=== PATIENT | male | born 1960 ===

== ENCOUNTER 2019-04-07 06:12 | Day surgery (SDC) | payer OTHER ==
[~2019-04-07] VITALS: Ht 172.7 cm; Wt 97.5 kg
[2019-04-07] VITALS (12 sets, daily range): BP systolic 105–142; BP diastolic 68–79
[~2019-04-07 06:12] MED LIST: ceFAZolin 1gm IVPB IVPB ONE; celeBREX 200mg Cap **SURGERY PATIENTS ONLY ORAL ONE; oxyCONTIN 20mg tab ORAL ONE
[2019-04-07] MEDS ORDERED: ATORVASTATIN CA10 MG ORAL (07:06)
[2019-04-07] MEDS ORDERED: ATENOLOL100 MG ORAL (07:06)
[2019-04-07] MEDS ORDERED: PAMELOR10 MG ORAL (07:06)
[2019-04-07] MEDS ORDERED: LISINOPRIL20 MG ORAL (07:06)
[2019-04-07] MEDS ORDERED: AMLODIPINE BESY10 MG ORAL (07:06)
[2019-04-07] MEDS ORDERED: NOVOLIN N100 UNIT/1 SUBQ (07:06)
[2019-04-07] MEDS ORDERED: ASPIR 8181 MG ORAL (07:06)
--- NOTE | 2019-04-07 07:40 | Pre-Procedure Note/Attestation ---
Pre-Procedure Note/Attestation Complete Prior to Procedure Planned Procedure: right Procedure Narrative: knee arthroscopy, possible menisectomy Indications for Procedure Pre-Operative Diagnosis: right knee meniscus tear Attestation I attest that I discussed the nature of the procedure; its benefits; risks and complications; and alternatives (and the risks and benefits of such alternatives ), prior to the procedure, with the patient (or the patient's legal artist representative). I attest that, if there was a reasonable possibility of needing a blood transfusion, the patient (or the patient's legal artist representative) was given the [facility] standardized written summary, pursuant to the [employer] Pringle Blood Safety Act ([place] Health and Safety Code # 1645, as amended). I attest that I re-evaluated the patient just prior to the surgery and that there has been no change in the patient's H&P, except as documented below: Oswaldo Santacruz MD Apr 07, 2019 07:40
--- NOTE | 2019-04-07 07:40 | Operative Note - PDOC ---
Operative Note Operative Note Pre-op Diagnosis: right knee meniscus tear Procedure: op report Post-op Diagnosis: same as pre-op plus Operative Findings: consistent w/pre-op dx studies Anesthesia: MAC Specimen: none Complications: none Condition: stable Estimated Blood Loss: none Implant(s) used?: No Oswaldo Santacruz MD Apr 07, 2019 07:40
[2019-04-07] MEDS ORDERED: Tylenol #3 tab (300mg/30mg) ORAL PRN (07:45)
[2019-04-07] MEDS ORDERED: HYDROcodone/Acetamin 5/325 tab ORAL PRN (07:45)
[2019-04-07] MEDS ORDERED: HYDROmorphone 1mg/ml Carpuject SUBQ PRN (07:45)
[2019-04-07] MEDS ORDERED: D5 1/2NS 1,000 ML IV SCH (07:45)
[2019-04-07] MEDS ORDERED: Kenalog-40 1ml Vial ONE (08:58)
[2019-04-07] MEDS ORDERED: Ketorolac 30mg Inj ONE (08:58)
[2019-04-07] MEDS ORDERED: Lidocaine 1% 10mg/ml/Epi 0.005mg/ml 30ml vial INJ ONE (08:59)
[2019-04-07] MEDS ORDERED: Duramorph PF 5mg/10ml amp ONE (08:59)
[2019-04-07] MEDS ORDERED: Bupivacaine 0.25% Inj 30ml INJ ONE (08:59)
[2019-04-07] MEDS ORDERED: Propofol 200mg/20ml IV ONE (09:00)
[2019-04-07] MEDS ORDERED: LR 1000ml ONE (09:00)
[2019-04-07] MEDS ORDERED: NS Irrig 4000ml IRRIG ONE (09:00)
[2019-04-07] MEDS ORDERED: fentaNYL 100 mcg/2 mL IV ONE (09:09)
--- NOTE | 2019-04-07 09:54 | Anethesia Preoperative Eval ---
Anesthesia Pre-op PMH/ROS General Date of Evaluation: Apr 07, 2019 Time of Evaluation: 09:00 ASA Score: ASA 1 Mallampati Score Class I : Soft palate, uvula, fauces, pillars visible Class II: Soft palate, uvula, fauces visible Class III: Soft palate, base of uvula visible Class IV: Only hard plate visible Mallampati Classification: Class I Allergies: Coded Allergies: MORPHINE (Verified Allergy, Severe, 04/07/19) VOMITING Patient NPO?: Yes Anesthesia Pre-op Phys. Exam Physician Exam Last Vital Signs Date Time Temp Pulse Resp B/P (MAP) Pulse Ox O2 Delivery O2 Flow Rate FiO2 04/07/19 07:09 98.5 62 20 142/79 98 Room Air Airway Exam Mallampati Score: Class I Gagandeep Pulido MD Apr 07, 2019 09:54
--- NOTE | 2019-04-07 09:54 | Immediate Post-Op Evaluation ---
Immediate Post-Op Evalulation Immediate Post-Op Evalulation Procedure: knee arthroscopy Nausea: No Vomiting: No Gagandeep Pulido MD Apr 07, 2019 09:54
[2019-04-07] MEDS ORDERED: Metoclopramide 10mg/2ml Inj ONE (10:47)
[2019-04-07] MEDS ORDERED: Metoclopramide 10mg/2ml Inj IVP SCH (10:49)
--- NOTE | 2019-04-07 12:43 | 48 Hour Post Anesthesia Eval ---
Post Anesthesia Evaluation Procedure: knee arthroscopy Date of Evaluation: Apr 07, 2019 Time of Evaluation: 12:42 Nausea: No Vomiting: No Gagandeep Pulido MD Apr 07, 2019 12:43
--- NOTE | 2019-04-07 13:30 | Operative Note - Dictated ---
DATE OF OPERATION: 04/07/2019 PREOPERATIVE DIAGNOSES: 1. Right knee internal derangement and medial and lateral meniscus tear. 2. Hypertrophic fat pad syndrome. POSTOPERATIVE DIAGNOSES: 1. Right knee posterior horn medial meniscus tear. 2. Hypertrophic fat pad/synovitis. 3. Grade 2 chondral damage medial femoral condyle. PROCEDURE: 1. Right knee arthroscopy and partial medial meniscectomy. 2. Synovectomy of medial lateral patellofemoral compartment. SURGEON: Oswaldo Santacruz M.D. ANESTHESIA: General. INDICATION FOR PROCEDURE: The patient is a pleasant gentleman, who has had progressive right knee pain. He had MRI, which showed some meniscal damage. He elected to undergo right knee arthroscopic medial lateral meniscectomy. Risks, limitations, expectations, and complications of the procedure were discussed in detail. All questions addressed. DESCRIPTION OF PROCEDURE: After informed consent was obtained, the patient was brought to the operating room and placed the patient under general anesthesia. The right leg was prepped and draped in a sterile manner. Ancef was administered. Time-out was performed. Inferolateral stab incision was then made. Trocar was introduced into the knee joint. There was significant resistance noted. There was hypertrophic synovial tissue, fat pad in the patellofemoral compartment. Medial gutter had a flap of meniscus or thickening of the possible plica that was extending into the gutter. Portal was established and the synovectomy at the anterior portion of the medial compartment extending into lateral compartment was performed. The ligamentum mucosa was pretty hyperemic. An ArthroCare was used to obtain hemostasis. Once that was done, the medial compartment was entered. The meniscus was noted to have a tear posterior horn of medial meniscus. Partial meniscectomy was performed using a shaver. Once that was done, the ACL was probed and noted to be intact. Lateral compartment was entered and lateral meniscus probe noted to be intact. At this point, the instruments were removed. Portal sites were closed with 3-0 Monocryl sutures. Steri-Strips and a sterile dressing were applied. ESTIMATED BLOOD LOSS: None. COMPLICATIONS: None. SPECIMENS: None. Oswaldo Santacruz M.D. DR: LISSETTE JOB#: [id number] CC: GIO
== END 2019-04-07 12:15 | disposition home or self-care (01) ==
LOC: SUR 06:12
DX: S83.241A Other tear of medial meniscus, current injury, right knee, initial encounter (principal); M79.4 Hypertrophy of (infrapatellar) fat pad; Z88.6 Allergy status to analgesic agent; X58.XXXA Exposure to other specified factors, initial encounter; Y92.9 Unspecified place or not applicable
CPT/HCPCS: 29876; 29881; 82962; J0690; J1885; J2704; J2765; J3010; J3301; J3490; 94003; 94150